=== PATIENT | female | born 1955 | race Caucasian/White ===

== ENCOUNTER 2017-12-28 07:18 | Outpatient (CLI) | payer BC ==
--- NOTE | 2017-12-28 08:30 | ULT ---
SONOGRAM ABDOMEN COMPLETE: History Abdominal distention. Upper abdomen pain postprandial. FINDINGS: Gallbladder has a normal appearance without evidence of stones. The common duct is 0.2 cm. Liver un remarkable without focal mass or intrahepatic biliary dilatation. No free fluid. The spleen, kidney s, and visualized portions of the abdominal aorta, IVC, and pancreas are unremarkable. IMPRESSION: Normal abdominal sonogram. POS: [facility]
== END 2017-12-28 07:19 | disposition home or self-care (01) ==
LOC: MADULT 07:18
PROVIDERS: ATTEND Family Medicine
DX: K82.9 Disease of gallbladder, unspecified (principal)
CPT/HCPCS: 76700